=== PATIENT | female | born 1990 | race Asian ===

== ENCOUNTER 2021-05-21 05:53 | Inpatient (IN) | payer MEDICAID, OTHER, SELFPAY ==
[2021-05-21 06:23] VITALS: BMI 30.1
[2021-05-21] MEDS ORDERED: Famotidine/PF 20 mg/2ml Vial SLOW IVP PRN (07:10)
[2021-05-21] MEDS ORDERED: Promethazine HCl 25 MG/ML VIAL IM PRN ×3 (07:10→21:47)
[2021-05-21] MEDS ORDERED: hydrALAZINE 20 MG/ML VIAL SLOW IVP PRN ×2 (07:10→16:26)
[2021-05-21] MEDS ORDERED: Ondansetron PF 4 MG/2 ML Vial IVP PRN ×3 (07:10→21:47)
[2021-05-21] MEDS ORDERED: Bicitra 30 ML UDCUP PO PRN (07:10)
[2021-05-21] MEDS ORDERED: Lactated Ringer's 1,000 ML IV SCH ×2 (07:15)
[2021-05-21] MEDS ORDERED: Azithromycin 500 MG in Sodium Chloride 0.9% 250 ML 250 ML IVPB SCH (07:15)
[2021-05-21] MEDS ORDERED: CEFAZOLIN 2 GM in Premix Bag 1 BAG IVPB SCH (07:15)
[2021-05-21 07:21] LABS: Fetal Membranes Rupture No Membranes Rupture (No Rupture)
[2021-05-21 08:08] LABS: Hemoglobin 12.9 g/dL (12.0-15.5); Mean Corpuscular HGB CONC 33.9 g/dL (32.0-36.0); Mean Corpuscular Hemoglobin 27.9 pg (27.0-33.0); Mean Corpuscular Volume 82.3 fl (81.6-98.3); Mean Platelet Volume 11.2 fl (7.4-10.4); Platelet Count 306 10x3/uL (150-450); RBC Distribution Width 13.8 % (11.5-14.5); Red Blood Cell (RBC) Count 4.62 10x6/uL (3.90-5.03); White Blood Cell (WBC) Count 10.8 10x3/uL (3.5-10.5)
[2021-05-21 08:33] LABS: Hep B Surf Ag Non-Reactive S/CO (NonReactive); Syphilis Antibody Nonreactive (Nonreactive); Syphilis Antibody Index 0.04 S/CO (<1.00 Non-Reactive)
[2021-05-21 08:34] LABS: HBSAg Index 0.19 S/CO (0-0.99)
[2021-05-21] MEDS ORDERED: Morphine PF 10 MG/10 ML VIAL ONE (09:50)
[2021-05-21] MEDS ORDERED: Oxytocin 10 UNITS/ML VIAL ONE ×2 (09:52→10:52)
[2021-05-21] MEDS ORDERED: Dexamethasone 4 mg/ml Vial ONE (09:52)
[2021-05-21] MEDS ORDERED: Ondansetron PF 4 MG/2 ML Vial ONE (09:52)
[2021-05-21] MEDS ORDERED: Phenylephrine 40 MG/NS 250 ML 250 ML ONE (09:53)
[2021-05-21 10:26] LABS: HIV (1/2) Antibody/Antigen Non-Reactive (NonReactive)
[2021-05-21] MEDS ORDERED: Ketorolac Tromethamine 30 MG/ML VIAL ONE ×2 (11:29→13:42)
[2021-05-21] MEDS ORDERED: NS w/ Oxytocin 30 units 500 ML ONE ×2 (13:51→15:08)
[2021-05-21 14:44] LABS: SARS-CoV-2 NAA Rapid Test Not Detected (NotDetected)
[2021-05-21] MEDS ORDERED: Bisacodyl 10 MG SUPP PR PRN (16:26)
[2021-05-21] MEDS ORDERED: HYDROcodone/Acetaminophen 5/325 mg Tablet PO PRN ×2 (16:26)
[2021-05-21] MEDS ORDERED: diphenhydrAMINE 25 MG CAP PO PRN (16:26)
[2021-05-21] MEDS ORDERED: Measles/Mumps/Rubella 10 MCG/0.5 ML VIAL SC ONE (16:26)
[2021-05-21] MEDS ORDERED: Lanolin Ointment 7 GM TUBE TOP PRN (16:26)
[2021-05-21] MEDS ORDERED: Misoprostol 200 MCG TAB PR PRN (16:26)
[2021-05-21] MEDS ORDERED: Methylergonovine 0.2 MG/ML VIAL IM PRN (16:26)
[2021-05-21] MEDS ORDERED: Zolpidem Tartrate 5 MG TAB PO PRN (16:26)
[2021-05-21] MEDS ORDERED: NS w/ Oxytocin 30 units 500 ML IV SCH (16:26)
[2021-05-21] MEDS ORDERED: Boostrix 0.5 ML (Tdap) VIAL IM ONE (16:26)
[2021-05-21] MEDS ORDERED: Simethicone Chewable 80 MG TAB PO PRN (16:26)
[2021-05-21] MEDS ORDERED: Ibuprofen 800 MG TAB PO SCH (20:00)
[2021-05-21] MEDS ORDERED: Ketorolac Tromethamine 30 MG/ML VIAL IVP PRN (21:47)
[2021-05-21] MEDS ORDERED: Hydrocerin (Eucerin) Cream 120 gm Jar TOP PRN (21:47)
[2021-05-21] MEDS ORDERED: diphenhydrAMINE 50 MG/ML VIAL IVP PRN (21:47)
[2021-05-21] MEDS ORDERED: Naloxone HCl 0.4 mg/ml Vial IVP PRN ×2 (21:47)
[2021-05-21] MEDS ORDERED: Naloxone HCl 0.4 mg/ml Vial IV PRN (21:47)
[2021-05-21] MEDS ORDERED: Promethazine HCl 25 MG SUPP PR PRN (21:47)
[2021-05-21] MEDS ORDERED: Communication Order-Pharmacy FS SCH (22:00)
[2021-05-21] MEDS: Docusate Calcium (SURFAK) 240 MG CAP PO SCH (22:05)
[2021-05-21] MEDS: Ferrous Sulfate 325 MG TAB PO SCH (22:05)
[2021-05-22 04:09] LABS: Hemoglobin 10.5 g/dL (12.0-15.5); Mean Corpuscular HGB CONC 33.3 g/dL (32.0-36.0); Mean Corpuscular Hemoglobin 27.8 pg (27.0-33.0); Mean Corpuscular Volume 83.3 fl (81.6-98.3); Platelet Count 239 10x3/uL (150-450); RBC Distribution Width 14.1 % (11.5-14.5); Red Blood Cell (RBC) Count 3.78 10x6/uL (3.90-5.03); White Blood Cell (WBC) Count 14.3 10x3/uL (3.5-10.5)
[2021-05-22] MEDS: Prenatal Vitamin 1 TAB PO SCH (08:17)
[2021-05-22] MEDS: Docusate Calcium (SURFAK) 240 MG CAP PO SCH ×2 (08:18→21:03)
[2021-05-22] MEDS: HYDROcodone/Acetaminophen 5/325 mg Tablet PO PRN ×4 (08:18→23:32)
[2021-05-22] MEDS ORDERED: Zolpidem Tartrate 5 MG TAB PO PRN (10:00)
[2021-05-22] MEDS: Ferrous Sulfate 325 MG TAB PO SCH ×2 (10:21→21:05)
[2021-05-22] MEDS ORDERED: Varicella virus, LIVE 0.5 ML VIAL SC ONE (16:26)
[2021-05-22] MEDS: Ibuprofen 800 MG TAB PO SCH (21:03)
[2021-05-23] MEDS: Ibuprofen 800 MG TAB PO SCH ×2 (05:19→13:22)
[2021-05-23 08:05] VITALS: BP 92/64; TEMP 98
[2021-05-23] MEDS: HYDROcodone/Acetaminophen 5/325 mg Tablet PO PRN ×3 (08:51→18:12)
[2021-05-23] MEDS: Prenatal Vitamin 1 TAB PO SCH (08:51)
[2021-05-23] MEDS: Docusate Calcium (SURFAK) 240 MG CAP PO SCH (08:51)
[2021-05-23] MEDS: Ferrous Sulfate 325 MG TAB PO SCH (09:05)
== END 2021-05-23 18:35 | disposition home or self-care (01) | DRG 788 ==
LOC: CSHLD/OP 05:53 → CSHLD 08:17 → CSHPP 15:25
PROVIDERS: ADMIT Obstetrics & Gynecology; ATTEND Obstetrics & Gynecology
PROC: 10D00Z1 Extraction of Products of Conception, Low, Open Approach (ICD-10-PCS; principal; 2021-05-21)
DX: O34.211 Maternal care for low transverse scar from previous cesarean delivery (principal); O24.429 Gestational diabetes mellitus in childbirth, unspecified control; Z3A.38 38 weeks gestation of pregnancy; Z37.0 Single live birth; Z20.822 Contact with and (suspected) exposure to COVID-19
CPT/HCPCS: 36415; 36416; 51702; 84112; 85027; 86780; 86850; 86900; 86901; 87340; 87389; 99285; J1100; J1885; J2274; J2405; J2590; S0028; U0002